=== PATIENT | male | born 1990 | race Caucasian/White ===

== ENCOUNTER 2019-07-12 16:13 | Emergency (ER) | payer SELFPAY ==
[~2019-07-12] VITALS: Ht 165.1 cm; Wt 68.0 kg
--- NOTE | 2019-07-12 16:20 | NUR ---
PT BIB [facility], FOR TAKING UNKNOWN AMOUNT OF XANAX. PT DENIES SI/HI. PT TOLD SISTER THAT HE WANTS "TO KILL HIMSELF". AAOX3. NO SOB. CONNECTED TO THE MONITOR AND PULSE OXIMETER. ON 02 AT 2L VIA N/C. BREATHING EVEN AND UNLABORED. WILL CONTINUE TO MONITOR.
[2019-07-12] MEDS ORDERED: IV NS 0.9% 1,000 ML BAG IV ONE (16:30)
--- NOTE | 2019-07-12 16:30 | NUR ---
Addendum: IV end time: NS I liter wide open: start time 1630 ; End time: 1730 ; PIV# 18 RAC PIV # [id number]
--- NOTE | 2019-07-12 16:35 | NUR ---
BLOOD DRAWN AND SENT TO LAB
[2019-07-12 16:40] LABS: APPEARANCE,URINE Clear (CLEAR); BILIRUBIN,URINE Negative (NEGATIVE); BLOOD, URINE Negative Ery/uL (NEGATIVE); COLOR,URINE Yellow (YELLOW); KETONES,URINE Negative (NEGATIVE); LEUKOCYTE ESTERASE ,URINE Negative (NEGATIVE); NITRITE, URINE Negative (NEGATIVE); PH,URINE 6.5 (5.0-8.0); PROTEIN,URINE Negative (NEGATIVE); UGLUCOSE Negative (NEGATIVE)
[2019-07-12 16:46] LABS: BASOPHILS # (AUTO) 0.1 /CMM (0.0-0.2); BASOPHILS % (AUTO) 0.8 % (0.0-2.0); EOSINOPHILS % (AUTO) 1.7 % (0.0-6.0); HEMATOCRIT 49 % (39-51); LYMPHOCYTES # (AUTO) 1.7 /CMM (0.8-4.8); LYMPHOCYTES % (AUTO) 21.7 % (20.0-44.0); MEAN CORPUSCULAR HGB CONC 35 g/dl (31.0-36.0); MEAN CORPUSCULAR VOLUME 92 fL (80-96); MONOCYTES # (AUTO) 0.4 /CMM (0.1-1.30); MONOCYTES % (AUTO) 5.6 % (2.0-12.0); NEUTROPHILS # (AUTO) 5.5 /CMM (1.8-8.9); NEUTROPHILS % (AUTO) 70.2 % (43.0-81.0); PLATELET COUNT (AUTO) 253 /CMM (150-450); RED BLOOD CELL COUNT(AUTO) 5.33 MIL/uL (4.5-6.0); WHITE BLOOD COUNT (AUTO) 7.8 K/uL (4.3-11.0)
[2019-07-12 17:08] LABS: BACTERIA,URINE Few /HPF (None Seen); RBC,URINE 0-2 /HPF (0-2); SQUAMOUS EPITHELIAL CELL,UR Rare /HPF (None Seen); WBC,URINE 0-2 /HPF (0-3)
--- NOTE | 2019-07-12 17:20 | NUR ---
The patient eloped from ER 2. Yannick (charge) called EMT and security to look for the patient. The patient was seen - area along [facility] - lying in the ground - alert and awake x 3; she states that " I fell off the tree". The patient was placed on a back board and cervical collar applied
[2019-07-12 17:27] LABS: ACETAMINOPHEN 0 ug/ml (10-30); ALANINE AMINOTRANSFERASE 31 U/L (12-78); ALCOHOL, BLOOD < 3 mg/dL (0-0); ALKALINE PHOSPHATASE 84 U/L (46-116); ASPARTATE AMINOTRANSFERASE 26 U/L (15-37); BILIRUBIN,DIRECT 0.2 mg/dL (0.0-0.2); BILIRUBIN,TOTAL 1.4 mg/dL (0.2-1.0); CALCIUM, SERUM 8.9 mg/dL (8.5-10.1); CARBON DIOXIDE 24 mmol/L (21-32); CHLORIDE 106 mmol/L (98-107); GLUCOSE 106 mg/dL (74-106); POTASSIUM 3.9 mmol/L (3.5-5.1); SALICYLATE 0.6 mg/dL (2.8-20.0); SODIUM SERUM 140 mmol/L (136-145); TOTAL PROTEIN, SERUM 7.3 g/dL (6.4-8.2); UREA NITROGEN, BLOOD 14 mg/dL (7-18)
--- NOTE | 2019-07-12 17:30 | NUR ---
Placed back to ER 2; monitored: neuro: alert and awake ER physician at bedside - Dr. More with orders for higher level of care- called [phone]
--- NOTE | 2019-07-12 17:40 | NUR ---
PT SENT TO [facility] VIA AMBULANCE
--- NOTE | 2019-07-12 17:42 | NUR ---
Transferred to higher level of care - [facility] per b2b managed service sales exec
[2019-07-12 18:03] VITALS: BP 125/75
== END 2019-07-12 20:12 | disposition short-term general hospital (02) ==
LOC: EDBD 16:19 → ER 16:19
DX: F32.9 Major depressive disorder, single episode, unspecified (principal); F41.9 Anxiety disorder, unspecified; F90.9 Attention-deficit hyperactivity disorder, unspecified type
CPT/HCPCS: 36415; 80048; 80076; 80305; 80307; 80329; 81001; 85025; 99285; G0480; J7030; 81000-TC